=== PATIENT | female | born 1990 | race African-American/Black ===

== ENCOUNTER 2021-08-11 09:36 | Emergency (ER) | payer MEDICAID, SELFPAY ==
[2021-08-11 09:37] VITALS: BP 132/92; PULSE 90; RESP 16; TEMP 36.6; O2SAT 97; BMI 17.7
--- NOTE | 2021-08-11 10:01 | US_ITS ---
STUDY: FIRST TRIMESTER OBSTETRICAL ULTRASOUND REASON FOR EXAM: Female, 31 years old pelvic pain, 11 wks LMP: 05/14/2021. TECHNIQUE: Transabdominal TECHNICAL QUALITY: Adequate. PRIOR ULTRASOUND: None. FINDINGS: There is visualization of a single gestational sac in a normal intrauterine position. The mean sac diameter (MSD) measures 4.9 cm, indicating an estimated gestational age (EGA) of 10 weeks, 6 days. The gestational sac shape is within normal limits. There is no demonstrated yolk sac. The placenta is non-visualized. There is visualization of a live embryo. The crown-rump length (CRL) measures 4.81 cm, indicating an estimated gestational age (EGA) of 11 weeks, 5 days. There is demonstrated cardiac activity with a heart rate of 163 bpm. The estimated gestation age (EGA) by LMP is 11 weeks, 2 days. The estimated date of delivery (BELLA) by LMP is 02/28/2022. The estimated gestation age (EGA) by US is 11 weeks, 2 days. The estimated date of delivery (BELLA) by US is 02/28/2022. The uterus measures 15.3 cm x 10.1 cm x 11.1 cm. There is no demonstrated uterine fibroid. The cervix is closed. The right ovary measures 3.1 cm x 2.2 cm x 1.6 cm. There is no right ovarian cyst. There is no visualized right adnexal mass or complex lesion. The left ovary was not visualized. There is no fluid in the cul de sac. US/Init OB < 14Wks US IMPRESSION: Single live intrauterine gestation with a mean gestational age of 11 weeks and 2 days. Electronically Signed: Dillon Ewing MD at 12:10 EDT ,
--- NOTE | 2021-08-11 10:02 | EDS_ITS ---
HPI History of Present Illness Chief Complaint: Abd Pain Informant: patient Onset/Context/Timing Onset: Yesterday Context: Gradual Onset Timing: Waxes and wanes Quality: Sharp Location: Suprapubic Current Severity: Mild Maximum Severity: Moderate Narrative Narrative: Patient presents secondary to pelvic pain. She is currently 11 weeks . Her compliance director is Dr. Moon in [place]. She reports sharp stabbing pain in the suprapubic region that started yesterday. She denies urinary symptoms. She is had no bleeding or spotting. This is her third . PFSH PFSH Medical History no medical history no medical history Home Medications cephalexin 500 mg PO BID 7 Days #14 cap 08/11/21 [Rx Last Taken Unknown] [id number] [] 1 tab PO DAILY 08/11/21 [History Last Taken Unknown] Allergy/AdvReac Type Severity Reaction Status Date / Time No Known Allergies Allergy Verified 08/11/21 09:39 Social History Smoking Status: Never smoker ROS ROS ED Constitutional Constitutional ED: Denies chills or fever(s) Eyes Eyes: Denies change in vision ENT ENT ED: Denies sore throat Cardiovascular Cardiovascular: Denies chest pain Respiratory/Chest Respiratory/Chest: Denies cough or dyspnea Gastrointestinal Gastrointestinal: Reports abdominal pain; Denies nausea or vomiting Genitourinary Genitourinary ED: Denies dysuria or hematuria Musculoskeletal Musculoskeletal: Denies back pain or neck pain Integumentary Denies rash Neurologic Neurologic: Denies headache(s) or weakness Allergic/Immunologic Allergic/Immunologic ED: Denies urticaria EXAM Physical Exam Const Vital Signs: 08/11/21 09:37 Temperature 98 F Temperature Source Temporal Pulse Rate 90 Respiratory Rate 16 Blood Pressure 132/92 H Blood Pressure Mean 105 Pulse Ox 97 Oxygen Delivery Method Room Air Positive well nourished and well developed General Appearance ED: well developed HEENT Reports moist mucous membranes Eyes PERRL and EOMs intact bilaterally Neck supple Chest Wall inspection of chest normal and palpation of chest normal Resp normal respiratory effort and clear to auscultation bilaterally Cardio regular rate and regular rhythm GI non-tender Auscultation: normoactive bowel sounds Palpation: soft Extremity normal to inspection Neuro oriented x3 Sensorium / Orientation: alert Psych mental status grossly normal Skin no rashes or lesions noted MDM MDM MDM Narrative Medical decision making narrative: Urinalysis obtained. Patient sent for ultrasound. Lab Data Attestation: I reviewed the patient's lab results. Labs: Laboratory Results - last 24 hr 08/11/21 10:10 Urine Color Yellow Urine Clarity Sl. Cloudy Urine pH 7.0 Ur Specific [place] 1.010 Urine Protein Negative Urine Glucose (UA) Normal Urine Ketones Negative Urine Occult Blood Negative Urine Nitrite Positive H Urine Bilirubin Negative Urine Urobilinogen Normal Ur Leukocyte Esterase 25 H Urine RBC 0 SEEN Urine WBC 0-5 SEEN Ur Squamous Epith Cells 0-5 SEEN Urine Bacteria 4+ Urine Mucus 0 SEEN Radiography Diagnostic Testing: Clinical Impression(s) from Imaging Studies Obstetrics Ultrasound 08/11/21 10:01 IMPRESSION: Single live intrauterine gestation with a mean gestational age of 11 weeks and 2 days. Electronically Signed: Dillon Ewing MD at 12:10 EDT Reading Location ID and State: [facility] / [place] , Service support , Treatment and Re-Evaluation Narrative: Urinalysis is nitrite positive with 4+ bacteria. Pelvic ultrasound reveals single live intrauterine at 11 weeks and 2 days. heart tones are 163 and normal. Patient will be treated with Keflex for her UTI. She is to follow-up with her [employer]. Return instructions provided. Discharge Plan Triage Chief Complaint: Abd Pain ED Provider: Arleth Padgett Dx/Rx/DC Orders Clinical Impression: UTI (urinary tract infection), First trimester Instructions: First Trimester, ED CYSTITIS Female Adult Prescriptions: New cephalexin 500 mg capsule 500 mg PO BID 7 Days Qty: 14 RF: 0 No Action 1 mg Tablet 1 tab PO DAILY RF: 0 Referrals: Nadiya MOON [Other] - 1-2 Weeks Disposition Disposition: Home, Self Care
[2021-08-11 10:16] LABS: Mucous, Urine 0 SEEN /hpf (<or=2+); Red Blood Cells-Urine 0 SEEN /hpf (0-5)
[2021-08-11 10:22] LABS: Color, Urine Yellow (Yellow); Glucose, Dipstick Normal (Normal); Ketone-Dipstick Negative (Negative); Leukocyte Esterase-Dipstick 25 /ul (Negative); Nitrite-Dipstick Positive (Negative); Occult Blood-Urine Negative /ul (Negative); Protein-Dipstick Negative (Negative); Urine Bilirubin Dipstick Negative (Negative); Urine Clarity Sl. Cloudy (Clear); Urine Urobilinogen Normal (Normal)
[2021-08-11 10:40] LABS: Bacteria 4+ /hpf (None Seen); Squamous Epithelial Cells - UA 0-5 SEEN /hpf (5-10); White Blood Cells 0-5 SEEN /hpf (0-5)
[2021-08-11] MEDS: Cephalexin 250 MG Capsule 500 MG PO (12:43)
[2021-08-11 12:48] VITALS: BP 130/80; PULSE 88; RESP 18; O2SAT 97
== END 2021-08-11 12:48 | disposition home or self-care (01) ==
PROVIDERS: Emergency Provider Emergency Medicine; Visit Provider Emergency Medicine
DX: O23.41 Unspecified infection of urinary tract in pregnancy, first trimester (principal); R10.2 Pelvic and perineal pain; Z3A.11 11 weeks gestation of pregnancy
CPT/HCPCS: 76801; 81001; 99283

== ENCOUNTER 2021-08-30 08:29 | Emergency (ER) | payer MEDICAID, SELFPAY ==
[2021-08-30 08:31] VITALS: BP 126/79; PULSE 109; RESP 16; TEMP 36.1; O2SAT 99; BMI 20.1
--- NOTE | 2021-08-30 08:44 | US_ITS ---
STUDY: SECOND AND THIRD TRIMESTER OBSTETRICAL ULTRASOUND - LIMITED REASON FOR EXAM: Female, 31 years old pain, evaluate placenta LMP: 05/24/2021. PRIOR ULTRASOUND: 08/11/2021. TECHNIQUE: Transabdominal TECHNICAL QUALITY: Adequate. FINDINGS: There is a single intrauterine fetus. The fetus is in a variable presentation. There is demonstrated cardiac activity with a heart rate of 153 bpm. There is a normal amniotic fluid volume. The amniotic fluid index (RAMEZ) is not measured. The placenta appears to be posterior in location and is not low lying. There are Grade 0 placental changes. The cervix measures 3.8 cm in length. The right ovary appears to measure 2.3 x 2 x 1.4 cm. The left ovary is not visualized. US/OB Limited (No Biometrics) IMPRESSION: 1. Single live intrauterine fetus in variable presentation. 2. The placenta appears to be posterior and is not low lying but suboptimally evaluated at this age. 3. Nonvisualization of the left ovary. Electronically Signed: Michael Green MD at 12:33 EDT ,
--- NOTE | 2021-08-30 08:46 | EX.ED.DYSGE1 ---
HPI History of Present Illness Chief Complaint: Abd Pain Informant: patient Narrative Narrative: Patient presents with abdominal pain. Patient is about 14 weeks . She is G2, P3. She states last evening she started having pain. It is kind of on both sides of the lower abdomen. She has no discharge or bleeding. She has no burning discomfort or change in color or frequency of urine. Bowels are normal. She is eating and drinking normally. She has no nausea. She has no vomiting. She has no fevers. Nothing specifically makes this better or worse. It waxes and wanes but never goes away. It initially seem to be more on the right side but this morning and at this moment is a little bit more on the left side. She has no history of prior abdominal surgery. She did have a recent urinary infection. With that she had some discomfort in her lower abdomen and both sides and she did not have any urinary symptoms. She did take her meds for treatment. PFSH PFS Home Medications cephalexin 500 mg capsule 500 mg PO BID 7 days #14 caps 08/11/21 [Rx Last Taken Unknown] [id number] 1 mg tablet 1 tab PO DAILY 08/11/21 [History Last Taken Unknown] Allergy/AdvReac Type Severity Reaction Status Date / Time No Known Allergies Allergy Verified 08/30/21 08:33 Social History Smoking Status: Never smoker ROS ROS ED Constitutional Constitutional ED: Denies chills, fever(s) or subjective ENT ENT ED: Denies rhinorrhea or sore throat Cardiovascular Cardiovascular: Denies chest pain Respiratory/Chest Respiratory/Chest: Denies cough or dyspnea Gastrointestinal Gastrointestinal: Reports abdominal pain and other Details: Patient states her appetite is very good and she is eating a lot. ; Denies constipation, diarrhea, melena, nausea or vomiting Genitourinary Genitourinary ED: Denies dysuria or hematuria Musculoskeletal Musculoskeletal: Reports back pain and other Details: She does note a little bit of soreness on her back but she is not sure if that started with this or not. It is mild. Integumentary Denies rash Neurologic Neurologic: Denies paresthesias or weakness Hematologic/Lymphatic Hematologic/Lymphatic: Denies easy bleeding or easy bruising Allergic/Immunologic Allergic/Immunologic ED: Denies urticaria EXAM Physical Exam Const Vital Signs: 08/30/21 08:31 08/30/21 11:08 Temperature 97.0 F L 98.1 F Temperature Source Temporal Temporal Pulse Rate 109 H 68 Respiratory Rate 16 16 Blood Pressure 126/79 H 111/74 Blood Pressure Mean 94 86 Pulse Ox 99 100 Oxygen Delivery Method Room Air Room Air Positive well nourished General Appearance ED: NAD; Negative for cyanotic or diaphoretic HEENT Reports moist mucous membranes Eyes EOMs intact bilaterally Neck no JVD Resp normal respiratory effort and clear to auscultation bilaterally Cardio regular rate, regular rhythm and no murmurs GI normal to inspection, nondistended, normoactive bowel sounds and non-distended GI Narrative: Patient has very minimal tenderness across the lower abdomen. It slightly more on the left than the right per patient. There is no rebound or guarding. No rashes. Narrative: Minimal right CVA tenderness Extremity General Extremety ED: Negative for edema General Extremity: Negative for edema Neuro Sensorium / Orientation: alert Psych mental status grossly normal Skin no rashes or lesions noted MDM MDM MDM Narrative Medical decision making narrative: I have updated patient that her CBC electrolytes look good. No acute abnormalities. No elevation of her white count. Urine is clean. Her ultrasound is done. We are calling to see if we can get this read. Patient will be rechecked again. Ultrasound shows single live IUP. Good heartbeat. Placenta is posterior and not low lying. Left ovary is not really visualized. Right shows no marked abnormalities. Patient is feeling well. Patient patient has had waxing and waning pain that occurs on both sides. She is eating and drinking well. Normal white count. No fevers. No vomiting. This is in the second trimester. I think there is a good chance this is likely round ligament pain. This was explained to the patient. Her OB doc is down in [place]. She is here with family. She is going to be following up soon. I will give her another name for follow-up locally in case her situation changes. We discussed reasons to return. We discussed possibility of appendicitis but I think with her symptoms and work-up this does not justify further pursuit at this time. Lab Data Attestation: I reviewed the patient's lab results. Labs: Laboratory Results - last 24 hr 08/30/21 08/30/21 08/30/21 09:29 09:29 11:29 WBC 5.5 RBC 4.04 L Hgb 11.4 L Hct 34.3 L MCV 84.9 MCH 28.2 MCHC 33.2 RDW Std Deviation 49.5 H RDW Coeff of Jeremi 15.9 H Plt Count 294 MPV 9.7 Immature Gran % (Auto) 0.400 Neut % (Auto) 44.9 L Lymph % (Auto) 40.7 [place] % (Auto) 11.4 H Eos % (Auto) 2.4 Baso % (Auto) 0.2 Absolute Neuts (auto) 2.5 Absolute Lymphs (auto) 2.22 Nucleated RBC % 0 Sodium 137 Potassium 3.5 Chloride 107 Carbon Dioxide 22.0 Anion Gap 8 BUN 7 Creatinine 0.43 L Estim Creat Clear Calc 172.79 Est GFR (MDRD) Af Amer 221 Est GFR (MDRD) Non-Af 183 BUN/Creatinine Ratio 16.2 Glucose 83 Calcium 9.0 Urine Color Yellow Urine Clarity Clear Urine pH 7.0 Ur Specific [place] 1.010 Urine Protein Negative Urine Glucose (UA) Normal Urine Ketones Negative Urine Occult Blood Negative Urine Nitrite Negative Urine Bilirubin Negative Urine Urobilinogen Normal Ur Leukocyte Esterase Negative Urine RBC 0 SEEN Urine WBC 0 SEEN Ur Squamous Epith Cells 0-5 SEEN Urine Bacteria 0 SEEN Urine Mucus 0 SEEN Radiography Diagnostic Testing: Clinical Impression(s) from Imaging Studies Obstetrics Ultrasound 08/30/21 08:44 IMPRESSION: 1. Single live intrauterine fetus in variable presentation. 2. The placenta appears to be posterior and is not low lying but suboptimally evaluated at this age. 3. Nonvisualization of the left ovary. Electronically Signed: Michael Green MD at 12:33 EDT , Discharge Plan Triage Chief Complaint: Abd Pain ED Provider: Fernando Cabello Dx/Rx/DC Orders Clinical Impression: Pain of round ligament, Pelvic pain affecting in second trimester, antepartum Instructions: Round Ligament Pain Prescriptions: No Action 1 mg Tablet 1 tab PO DAILY cephalexin 500 mg capsule 500 mg PO BID 7 Days Qty: 14 0RF Primary Care Provider: Care Physician,No Primary Referrals: Vande Velde,Arleth, DO [STAFF PHYSICIAN] - 3-5 Days if not improving NOT,DEFINED [NON-STAFF] - Disposition Disposition: Home, Self Care
[2021-08-30 10:05] LABS: Absolute Lymphocyte Count 2.22 X10^3/uL (0.83-4.51); Absolute Neutrophil Count 2.5 X10^3/uL (2.0-7.7); Basophil# 0.01 X10^3/uL; Basophil% 0.2 % (0-1); Eosinophil# 0.13 X10^3/uL; Eosinophils% 2.4 % (0-5); Hematocrit 34.3 % (37-47); Hemoglobin 11.4 g/dL (12.0-15.0); Lymphocyte # 2.22 X10^3/ul (0.83-4.51); Lymphocyte % 40.7 % (19-41); Mean Corp Hgb Conc 33.2 g/dL (32-36); Mean Corpuscular Hgb 28.2 pg (27.0-32.0); Mean Corpuscular Volume 84.9 fL (81-99); Mean Platelet Vol. 9.7 fl (6.2-12.0); Monocyte# 0.62 X10^3/uL; Monocyte% 11.4 % (0-10); NRBC Flagged by Analyzer 0 % (0-5); Neutrophil # 2.46 X10^3/uL (2.7-7.7); Neutrophil % 44.9 % (47-70); Platelet Count 294 K/mm3 (150-450); RBC Distribution Width CV 15.9 % (11.6-14.6); RBC Distribution Width SD 49.5 fl (35.1-43.9); Red Blood Count 4.04 M/mm3 (4.2-5.4); White Blood Count 5.5 K/mm3 (4.4-11.0)
[2021-08-30 10:14] LABS: Anion Gap 8 (5-15); BUN 7 mg/dL (7-18); BUN/Creat Ratio 16.2 RATIO (10-20); Chloride 107 mmol/L (98-107); Creatinine, Serum 0.43 mg/dL (0.55-1.02); EST Glomerular Filtration Rate 183 mL/min (>60); Est Glom Filt Rate - Afr Amer 221 mL/min (>60); Estimated Creatinine Clearance 172.79 ml/min; Glucose 83 mg/dL (74-106); Potassium 3.5 mmol/L (3.5-5.1); Sodium Level 137 mmol/L (136-145)
[2021-08-30 11:08] VITALS: BP 111/74; PULSE 68; RESP 16; TEMP 36.7; O2SAT 100
[2021-08-30] MEDS: 0.9% Normal Saline 1,000 ML 1000 ML IV (11:25)
[2021-08-30 11:35] LABS: Bacteria 0 SEEN /hpf (None Seen); Mucous, Urine 0 SEEN /hpf (<or=2+); Red Blood Cells-Urine 0 SEEN /hpf (0-5); White Blood Cells 0 SEEN /hpf (0-5)
[2021-08-30 11:36] LABS: Color, Urine Yellow (Yellow); Glucose, Dipstick Normal (Normal); Ketone-Dipstick Negative (Negative); Leukocyte Esterase-Dipstick Negative /ul (Negative); Nitrite-Dipstick Negative (Negative); Occult Blood-Urine Negative /ul (Negative); Protein-Dipstick Negative (Negative); Urine Bilirubin Dipstick Negative (Negative); Urine Clarity Clear (Clear); Urine Urobilinogen Normal (Normal)
[2021-08-30 11:46] LABS: Squamous Epithelial Cells - UA 0-5 SEEN /hpf (5-10)
== END 2021-08-30 12:59 | disposition home or self-care (01) ==
PROVIDERS: Emergency Provider Emergency Medicine; Visit Provider Emergency Medicine
DX: O26.892 Other specified pregnancy related conditions, second trimester (principal); R10.2 Pelvic and perineal pain; M54.9 Dorsalgia, unspecified; Z3A.14 14 weeks gestation of pregnancy
CPT/HCPCS: 76815; 80048; 81001; 85025; 96360; 99282; J7030; A4216